=== PATIENT | male | born 2000 | race Two or more races ===

== ENCOUNTER 2018-11-15 09:03 | Emergency (ER) | payer BC ==
[~2018-11-15] VITALS: Ht 190.5 cm; Wt 92.1 kg
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
[2018-11-15] MEDS ORDERED: KETOROLAC TROMETHAMINE INJ 30 MG/ML VIAL ONE (09:49)
[2018-11-15] MEDS: KETOROLAC TROMETHAMINE INJ 30 MG/ML VIAL IV ONE (09:54)
--- NOTE | 2018-11-15 09:56 | NUR ---
ALMOND GRINDER AT BEDSIDE
[2018-11-15 11:21] VITALS: BP 138/71
--- NOTE | 2018-11-15 11:23 | NUR ---
Patient discharged to home in stable condition. Written and verbal after care instructions given. Patient verbalizes understanding of instruction. Left arm softcast in place. written prescriptions provided to patient. left ER with father
== END 2018-11-15 11:23 | disposition home or self-care (01) ==
LOC: ER 09:06
DX: S62.102A Fracture of unspecified carpal bone, left wrist, initial encounter for closed fracture (principal); V49.49XA Driver injured in collision with other motor vehicles in traffic accident, initial encounter; Y93.89 Activity, other specified; Y92.410 Unspecified street and highway as the place of occurrence of the external cause; Y99.8 Other external cause status
CPT/HCPCS: 29125; 73110; 96374; 99283; J1885